=== PATIENT | female | born 1995 | race Caucasian/White ===

== ENCOUNTER 2018-07-05 20:30 | Observation (INO) | payer MEDICAID ==
[~2018-07-05] VITALS: Ht 165.1 cm; Wt 78.0 kg
[2018-07-05] MEDS ORDERED: TERBUTALINE 1 MG/ML VIAL SUBQ ONE (21:17)
[2018-07-05] MEDS ORDERED: TERBUTALINE 1 MG/ML VIAL SUBQ SCH (22:25)
[2018-07-05] MEDS ORDERED: LACTATED RINGERS 1,000 ML IV SCH (22:25)
[2018-07-05] MEDS ORDERED: PREN-380 PO (22:25)
[2018-07-05 22:31] VITALS: BP 119/72
== END 2018-07-05 22:45 | disposition home or self-care (01) ==
LOC: MLD 20:30
PROVIDERS: ADMIT Obstetrics & Gynecology; ATTEND Obstetrics & Gynecology
DX: O21.2 Late vomiting of pregnancy (principal); Z3A.38 38 weeks gestation of pregnancy
CPT/HCPCS: G0378; J3105; J7120

== ENCOUNTER 2020-10-29 07:57 | Emergency (ER) | payer MEDICAID, OTHER ==
[~2020-10-29] VITALS: Ht 162.6 cm; Wt 71.7 kg
[~2020-10-29 07:57] MED LIST: PREN-380 PO
[2020-10-29 07:59] VITALS: BP 137/77
--- NOTE | 2020-10-29 08:02 | NUR ---
Patient ambulated to bed 7. RN evaluating the patient at bedside.
--- NOTE | 2020-10-29 08:05 | NUR ---
25 y/o F coming in from home with c/c left leg pain. Patient states left ankle and left knee pain x 1.5 weeks. 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 Patient statse 01/14, "falling asleep/intermittent" pain to left ankle that radiates up to left knee. Patient states walking the past few days has made it worse. No edema noted to left ankle. Pt states she used OTC Icy Hot with minor relief, and Tylenol yesterday with minor relief. No medications LINUX ADMIN today. PMH/Sx/Meds: Dick HECK Addendum: 10/29/20 at 0810 by [facility] 25 y/o F coming in from home with c/c left leg pain. Patient states left ankle and left knee pain x 1.5 weeks. 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 Patient statse 01/14, "falling asleep/intermittent" pain to left ankle that radiates up to left knee. Patient states walking the past few days has made it worse. No edema noted to left ankle. Pt states she used OTC Icy Hot with minor relief, and Tylenol yesterday with minor relief. No medications LINUX ADMIN today. +CMS, +ROM of left ankle and left knee. Patient states no other medical complaints at this time; denies any trauma, falls, injury, back pain, abdominal pain, headache, dizziness, SOB, chest pain, N/V. PMH/Sx/Meds: Dick HECK
--- NOTE | 2020-10-29 08:15 | NUR ---
Dr. Can is evaluating patient at bedside.
[2020-10-29] MEDS ORDERED: KETOROLAC 60 MG/2 ML VIAL IM ONE ×2 (08:19→08:20)
[2020-10-29] MEDS ORDERED: ACET-8386 PO (08:25)
[2020-10-29] MEDS ORDERED: IBUP-2213 PO (08:25)
[2020-10-29 08:34] VITALS: BP 137/77
--- NOTE | 2020-10-29 08:34 | NUR ---
Patient discharged with v/s stable. Written and verbal after care instructions given and explained. Patient alert, oriented and verbalized understanding of instructions. Ambulatory with steady gait. All questions addressed prior to discharge. ID band removed. Patient advised to follow up with PMD. Rx of Hydrocodone/Acetaminophen, Ibuprofen given. Patient educated on indication of medication including possible reaction and side effects. Opportunity to ask questions provided and answered.
--- NOTE | 2020-10-29 08:34 | NUR ---
Patient states minor relief after 60mg Toradol IM.
== END 2020-10-29 08:34 | disposition home or self-care (01) ==
LOC: MED 07:57
DX: M79.605 Pain in left leg (principal); F17.210 Nicotine dependence, cigarettes, uncomplicated
CPT/HCPCS: 96372; 99283; J1885

== ENCOUNTER 2021-12-04 21:17 | Emergency (ER) | payer OTHER ==
[~2021-12-04] VITALS: Ht 165.1 cm; Wt 81.6 kg
[~2021-12-04 21:17] MED LIST changes: +ACET-8386 PO; +IBUP-2213 PO
[2021-12-04 22:19] VITALS: BP 123/76
--- NOTE | 2021-12-04 22:27 | NUR ---
TO LOBBY FOLLOWING TRIAGE
[2021-12-05] MEDS ORDERED: DEXT15DR6 OP (00:01)
[2021-12-05] MEDS ORDERED: PRED20TA5 PO (00:01)
--- NOTE | 2021-12-05 00:06 | NUR ---
SEEN BY ERMD NO NURSING INTERVENTIONS PROVIDED FOR PATIENT. PATIENT DISCHARGED BY ERMD.
== END 2021-12-05 00:06 | disposition home or self-care (01) ==
LOC: MED 21:17
DX: G51.0 Bell's palsy (principal); Z79.899 Other long term (current) drug therapy; Z79.1 Long term (current) use of non-steroidal anti-inflammatories (NSAID); Z79.891 Long term (current) use of opiate analgesic
CPT/HCPCS: 99283

== ENCOUNTER 2022-01-01 15:32 | Emergency (ER) | payer OTHER ==
[~2022-01-01] VITALS: Ht 165.1 cm; Wt 84.1 kg
[~2022-01-01 15:32] MED LIST changes: +DEXT15DR6 OP; +PRED20TA5 PO
[2022-01-01 16:09] VITALS: BP 144/93
[2022-01-01] MEDS ORDERED: LIDOCAINE MPF 1% 10 MG/ML VIAL INJ ONE (17:25)
== END 2022-01-01 18:32 | disposition home or self-care (01) ==
LOC: MED 15:32
DX: S61.216A Laceration without foreign body of right little finger without damage to nail, initial encounter (principal); Z79.899 Other long term (current) drug therapy; Z79.891 Long term (current) use of opiate analgesic; Z79.1 Long term (current) use of non-steroidal anti-inflammatories (NSAID); W25.XXXA Contact with sharp glass, initial encounter; Y93.G1 Activity, food preparation and clean up; Y92.89 Other specified places as the place of occurrence of the external cause; Y99.8 Other external cause status
CPT/HCPCS: 12002; 99282; J2001

== ENCOUNTER 2022-01-05 10:09 | Emergency (ER) | payer OTHER ==
[~2022-01-05] VITALS: Ht 157.5 cm; Wt 74.8 kg
[2022-01-05 10:33] VITALS: BP 129/82
--- NOTE | 2022-01-05 12:35 | NUR ---
Patient discharged with v/s stable. Written and verbal after care instructions given. Patient verbalized understanding. Ambulatory with steady gait. All questions addressed prior to discharge. Advised to follow up with PMD.
--- NOTE | 2022-01-05 12:36 | NUR ---
The patient's care was reviewed and supervised by ED Agency Nurse 7, RN, RN.
== END 2022-01-05 12:35 | disposition home or self-care (01) ==
LOC: MED 10:09
DX: S61.011D Laceration without foreign body of right thumb without damage to nail, subsequent encounter (principal); Z48.02 Encounter for removal of sutures; X58.XXXD Exposure to other specified factors, subsequent encounter
CPT/HCPCS: 99281

== ENCOUNTER 2022-01-09 10:50 | Emergency (ER) | payer OTHER ==
[~2022-01-09] VITALS: Ht 165.1 cm; Wt 84.4 kg
[2022-01-09 11:00] VITALS: BP 121/69
--- NOTE | 2022-01-09 11:13 | NUR ---
pt moved to [facility] at this time, suture tray placed next to pt on table
--- NOTE | 2022-01-09 11:13 | NUR ---
26 y/o female, pt presents to ed for suture removal on right hand 5th digit. site has no edema, bleeding, redness, or discharge. pt denies any increased pain or tenderness to area. skin is pink/warm/dry. a&o x4 with even and steady gait. pt denies any fever, cp, sob, or cough at this time. pt states pain is 0/10 at this time. vss. patient positioned for comfort. ermd made aware of pt. pmh: denies nka med: denies
[2022-01-09 12:01] VITALS: BP 120/62
== END 2022-01-09 12:01 | disposition home or self-care (01) ==
LOC: MED 10:50
DX: S61.216D Laceration without foreign body of right little finger without damage to nail, subsequent encounter (principal); Z48.02 Encounter for removal of sutures; Z79.899 Other long term (current) drug therapy; Z79.891 Long term (current) use of opiate analgesic; Z79.1 Long term (current) use of non-steroidal anti-inflammatories (NSAID); W25.XXXD Contact with sharp glass, subsequent encounter
CPT/HCPCS: 99281

== ENCOUNTER 2022-10-27 16:13 | Emergency (ER) | payer OTHER ==
[~2022-10-27] VITALS: Ht 165.1 cm; Wt 73.0 kg
[~2022-10-27 16:13] MED LIST changes: -ACET-8386 PO; +ACET-8905 PO
[2022-10-27 17:06] VITALS: BP 99/66
--- NOTE | 2022-10-27 17:22 | NUR ---
AMBULATED TO BED 5 W NO DIFFICULTY
--- NOTE | 2022-10-27 17:30 | NUR ---
27YO FEMALE PT C/O CRAMPING 02/14 LLQ ABD PAIN X2DAYS. REPORTS SUDDEN INTERMITTENT EPISODES. LLQ TENDER TO TOUCH. N/V/D -blood XTODAY. DENIES RELIEF AFTER TYLENOL, FEVER, OR CHILLS. PT AAOX4, NO VISIBLE DISTRESS. HOB POSITIONED PER COMFORT. HX: DENIES NKA
[2022-10-27 17:43] LABS: APPEARANCE,URINE CLEAR (CLEAR); BILIRUBIN,URINE NEGATIVE (NEGATIVE); BLOOD, URINE NEGATIVE (NEGATIVE); COLOR,URINE YELLOW (YELLOW); LEUKOCYTE ESTERASE ,URINE NEGATIVE (NEGATIVE); NITRITE, URINE NEGATIVE (NEGATIVE); PH,URINE 6.5 (5.0-9.0); UGLUCOSE NEGATIVE (NEGATIVE)
[2022-10-27] MEDS ORDERED: ONDANSETRON 4 MG ODT PO ONE (18:10)
--- NOTE | 2022-10-27 18:13 | NUR ---
The patient's care was reviewed and supervised by FLEX PERES RN.
--- NOTE | 2022-10-27 18:29 | NUR ---
lab at bedside
[2022-10-27 18:50] LABS: BASOPHILS % (AUTO) 0.2 % (0.0-2.0); EOSINOPHILS % (AUTO) 0.1 % (0.0-4.0); HEMATOCRIT 31.5 % (36-48); HEMOGLOBIN 9.7 g/dL (12.0-16.0); LYMPHOCYTES # (AUTO) 0.2 K/uL (2.5-16.5); LYMPHOCYTES % (AUTO) 2.4 % (20.5-51.1); MEAN CORPUSCULAR HEMOGLOBIN 20 pg (27-31); MEAN CORPUSCULAR HGB CONC 31 g/dL (33-37); MEAN CORPUSCULAR VOLUME 65.8 fL (80-94); MONOCYTES # (AUTO) 0.5 K/uL (0.8-1.0); MONOCYTES % (AUTO) 4.9 % (1.7-9.3); NEUTROPHILS # (AUTO) 9.3 K/uL (1.8-7.7); NEUTROPHILS % (AUTO) 92.4 % (42.2-75.2); PLATELET COUNT (AUTO) 329 K/uL (140-450); RED BLOOD CELL COUNT(AUTO) 4.79 MIL/uL (4.20-5.40); RED CELL DISTRIBUTION WIDTH 16.6 % (11.6-13.7); WHITE BLOOD COUNT (AUTO) 10.1 K/uL (4.8-10.8)
[2022-10-27 19:19] LABS: ALBUMIN 3.5 g/dL (3.4-5.0); ANION GAP 13.2 (8-16); CARBON DIOXIDE 26.4 mmol/L (21-32); CREATININE 0.8 mg/dL (0.6-1.3); POTASSIUM 3.6 mmol/L (3.5-5.1); TOTAL BILIRUBIN 0.5 mg/dL (0.0-1.0)
--- NOTE | 2022-10-27 19:26 | NUR ---
REPORT GIVEN TO LYDIA FLAHERTY. TRANSFER OF CARE AT THIS TIME
[2022-10-27] MEDS ORDERED: ONDA-188 PO (19:46)
--- NOTE | 2022-10-27 19:55 | NUR ---
pt awake and alert, denies abdominal pain or nausea at this time.
[2022-10-27 19:57] VITALS: BP 127/69
== END 2022-10-27 19:57 | disposition home or self-care (01) ==
LOC: MED 16:13
DX: R10.32 Left lower quadrant pain (principal); Z79.899 Other long term (current) drug therapy
CPT/HCPCS: 36415; 80053; 81003; 81025; 83605; 83690; 85025; 99283; Q0162

== ENCOUNTER 2023-10-27 01:51 | Emergency (ER) | payer OTHER ==
[~2023-10-27] VITALS: Ht 165.1 cm; Wt 73.9 kg
[~2023-10-27 01:51] MED LIST changes: +ONDA-188 PO
[2023-10-27 01:53] VITALS: BP 120/80; PULSE 121; RESP 18; TEMP 97.8; O2SAT 100
[2023-10-27 02:17] VITALS: BP 120/80; PULSE 108; RESP 18; TEMP 97.8; O2SAT 100
== END 2023-10-27 02:17 ==
LOC: MED 01:51
DX: Z04.1 Encounter for examination and observation following transport accident (principal); Z79.1 Long term (current) use of non-steroidal anti-inflammatories (NSAID); Z79.899 Other long term (current) drug therapy; V43.52XA Car driver injured in collision with other type car in traffic accident, initial encounter; Y93.89 Activity, other specified; Y92.488 Other paved roadways as the place of occurrence of the external cause; Y92.89 Other specified places as the place of occurrence of the external cause
CPT/HCPCS: 99283